=== PATIENT | male | born 1945 | race Caucasian/White ===

== ENCOUNTER → 2023-08-13 13:22 | Outpatient (REF) | payer OTHER, SELFPAY | LOC: DHCBC MAIN 13:22 | PROVIDERS: ATTENDING PHYSICIAN Internal Medicine; FAMILY PHYSICIAN Family Medicine | DX: I25.10 Atherosclerotic heart disease of native coronary artery without angina pectoris (principal); I77.810 Thoracic aortic ectasia; I49.3 Ventricular premature depolarization | CPT/HCPCS: 93306 ==

== ENCOUNTER → 2023-08-15 09:20 | Outpatient (REF) | payer OTHER, SELFPAY | LOC: RCS 09:20 | PROVIDERS: ATTENDING PHYSICIAN Internal Medicine; FAMILY PHYSICIAN Family Medicine | DX: I49.3 Ventricular premature depolarization (principal) | CPT/HCPCS: 93225; 93226 ==

== ENCOUNTER → 2025-04-01 11:39 | Outpatient (REF) | payer MEDICARE, SELFPAY | LOC: HWRAD 11:39 | PROVIDERS: ATTENDING PHYSICIAN Family Medicine | DX: M54.50 Low back pain, unspecified (principal); M25.552 Pain in left hip | CPT/HCPCS: 72100; 73523 ==